=== PATIENT | male | born 1980 ===

== ENCOUNTER 2018-04-20 20:19 | Emergency (ER) | payer SELFPAY ==
[2018-04-20 20:56] VITALS: TEMP 99.1
[2018-04-20] MEDS ORDERED: DiphenhydrAMINE 50 mg/ml Inj IV STA (21:35)
--- NOTE | 2018-04-20 21:38 | ED PDOC ---
HPI: Skin/Bite Injury Time Seen by Provider: 04/20/18 21:14 Chief Complaint (Nursing): Abnormal Skin Integrity Chief Complaint (Provider): rash History Per: Patient History/Exam Limitations: no limitations Onset/Duration Of Symptoms: Days (2) Current Symptoms Are (Timing): Still Present Quality Of Symptoms: Itching Additional Complaint(s): 37 y/o male presents for evaluation of pruritic rash to arms and legs x 2 days. Patient states he was throwing a lot of garbage out in his building including old sheet rock and is not sure if he came in contact with mold or something else that could have caused rash; states rash started the next day. Denies fever, nausea/vomiting, facial swelling, difficulty speaking/swallowing. No relief with hydrocortisone cream Past Medical History Reviewed: Historical Data, Nursing Documentation, Vital Signs Vital Signs: Last Vital Signs Temp 99.1 F 04/20/18 20:55 Pulse 56 L 04/20/18 20:55 Resp 16 04/20/18 20:55 BP 111/56 L 04/20/18 20:55 Pulse Ox 99 04/20/18 20:55 - Medical History PMH: No Chronic Diseases - Surgical History Surgical History: No Surg Hx - Family History Family History: States: No Known Family Hx - Immunization History Hx Tetanus Toxoid Vaccination: No Hx Influenza Vaccination: No Hx Pneumococcal Vaccination: No - Home Medications Home Medications: Ambulatory Orders Medication Instructions Recorded Bacitracin 1 in TOP DAILY #1 tube 02/23/15 Cetirizine HCl [Zyrtec] 10 mg PO DAILY #5 capsule 04/21/18 Famotidine [Pepcid] 20 mg PO BID #8 tab 04/21/18 predniSONE [Prednisone] 60 mg PO HS #12 tab 04/21/18 - Allergies Allergies/Adverse Reactions: Allergies Allergy/AdvReac Type Severity Reaction Status Date / Time No Known Allergies Allergy Verified 04/20/18 20:55 Review of Systems ROS Statement: Except As Marked, All Systems Reviewed And Found Negative Skin: Positive for: Rash Physical Exam - Reviewed Nursing Documentation Reviewed: Yes Vital Signs Reviewed: Yes - Physical Exam Appears: Positive for: Well, Non-toxic, No Acute Distress Head Exam: Positive for: ATRAUMATIC, NORMAL INSPECTION, NORMOCEPHALIC Skin: Positive for: Rash (papular rash with excoriations noted b/l arms, legs; hands and feet spared. no vesicles, drainage) ENT: Positive for: Normal ENT Inspection Cardiovascular/Chest: Positive for: Regular Rate, Rhythm Respiratory: Positive for: Normal Breath Sounds Gastrointestinal/Abdominal: Positive for: Normal Exam Back: Positive for: Normal Inspection Extremity: Positive for: Normal ROM Neurologic/Psych: Positive for: Alert, Oriented - ECG O2 Sat by Pulse Oximetry: 99 - Progress ED Course And Treament: IV solumedrol, IV pepcid, IV benadryl On re-eval, patient reports feeling "shaky" after meds given Vitals stable on monitor IV fluids ordered 00:00 Patient resting comfortably; states he is feeling better. Rash improving Patient educated on findings, discharged with rx Prednisone, Pepcid, Zyrtec Advised follow up PMD within 2-3 days Return precautions given Disposition - Clinical Impression Clinical Impression: Rash and nonspecific skin eruption - Patient ED Disposition Is Patient to be Admitted: No Counseled Patient/Family Regarding: Diagnosis, Rx Given - Disposition [facility]errals: [facility] [Outside] Disposition: Routine/Home Disposition Time: 00:13 Condition: IMPROVED Prescriptions: Cetirizine HCl [Zyrtec] 10 mg PO DAILY #5 capsule Famotidine [Pepcid] 20 mg PO BID #8 tab predniSONE [Prednisone] 60 mg PO HS #12 tab Instructions: Skin Rash
[2018-04-20] MEDS ORDERED: DiphenhydrAMINE 50 mg/ml Inj ONE (21:49)
[2018-04-21 00:09] VITALS: BP 126/64; PULSE 79; RESP 15
[2018-04-21 00:13] VITALS: O2SAT 99
== END 2018-04-21 00:25 | disposition home or self-care (01) ==
LOC: H.ER 20:19
DX: R21 Rash and other nonspecific skin eruption (principal)
CPT/HCPCS: 96374; 96375; 99283; J1200; J2930